=== PATIENT | female | born 1940 | race Caucasian/White ===

== ENCOUNTER 2019-06-08 11:05 | Outpatient (CLI) | payer MEDICARE, OTHER ==
[2019-06-08] VITALS (10 sets, daily range): BP systolic 92–127; BP diastolic 31–74; PULSE 62–77; TEMP 97.3–98.7
[~2019-06-08] VITALS: Ht 167.6 cm; Wt 71.4 kg
[~2019-06-08 11:05] MED LIST: ASPIRIN E.C. 8181 MG PO; B-121000 MCG PO; BREO IH; COUMADIN 22.5 MG/TAB PO; FOLIC ACID800 MCG PO; GLUCOPHAGE500 MG/TAB PO; KLOR-CON SPRIN10 MEQ PO; MAG-OX 400400 MG/TAB PO; PREDNISONE 2.52.5 MG PO; PROAIR HFA0.09 MG/AC IH; SINGULAIR 110 MG/TAB PO; SYNTHROID0.1 MG/TAB PO; TOPROL XL 25MG25 MG PO; TYLENOL W/COD1 UDTAB PO; VITAMIN D31000 IU PO; ZOCOR 40MG40 MG PO
[2019-06-08] MEDS ORDERED: ELIQUIS 5MG PO (15:34)
[2019-06-08] MEDS ORDERED: XALATAN EYE DROPS OD (15:41)
== END 2019-06-08 17:27 | disposition home or self-care (01) ==
LOC: EUO 11:05
DX: C34.32 Malignant neoplasm of lower lobe, left bronchus or lung (principal)
CPT/HCPCS: J7050; P9016